=== PATIENT | female | born 1995 | race African-American/Black ===

== ENCOUNTER 2023-08-17 13:17 | Emergency (ER) | payer MEDICAID ==
[~2023-08-17] VITALS: Ht 162.6 cm; Wt 64.0 kg
[2023-08-17 13:26] VITALS: O2SAT 98
[2023-08-17] MEDS: DIPHENHYDRAMINE 50MG/ML VIAL IM STA (13:41)
[2023-08-17] MEDS: HALOPERIDOL LACTATE 5MG/ML VIAL IM ONE (13:41)
[2023-08-17] MEDS: LORAZEPAM 2MG/ML INJ IM ONE (13:41)
[2023-08-17 15:20] LABS: BASOPHILS % 0.5 % (0.0-2.0); EOSINOPHILS % 0.5 % (0.0-5.0); HEMATOCRIT. 32.9 % (36.0-48.0); HEMOGLOBIN. 10.5 g/dL (12.0-16.0); LYMPHOCYTES % 16.9 % (20.0-50.0); MEAN CORPUSCULAR HEMOGLOBIN 25.7 pg (28.0-32.0); MEAN CORPUSCULAR VOLUME 80.2 fL (81.0-99.0); MEAN PLATELET VOLUME 7.7 fl (7.4-10.4); MONOCYTES % 6.5 % (2.0-8.0); NEUTROPHILS % 75.6 % (40.0-76.0); PLATELET 373 x1000/uL (130-400); RED CELL DISTRIBUTION WIDTH 19.4 % (11.6-14.6); WHITE BLOOD COUNT 6.9 x1000/uL (4.5-11.0)
[2023-08-17 15:22] LABS: ACETAMINOPHEN < 2 ug/mL (10-30)
[2023-08-17 15:27] LABS: ETHANOL BLOOD < 10 mg/dL (<10); TROPONIN I HIGH SENSITIVITY < 4 ng/L (3.0-34)
[2023-08-17 15:32] LABS: HCG SCREEN NEGATIVE
[2023-08-17 18:55] LABS: CHLORIDE 109 mEq/L (98-107); POTASSIUM 4.1 mEq/L (3.5-5.1); SODIUM 140 mEq/L (136-145)
[2023-08-17 18:56] LABS: CALCIUM 9.1 mg/dL (8.7-10.4); CARBON DIOXIDE 25 mEq/L (21-32)
[2023-08-17 19:01] LABS: CREATININE 0.9 mg/dL (0.6-1.0); GLUCOSE 91 mg/dL (70-105); UREA NITROGEN BLOOD 9 mg/dL (9-23)
[2023-08-17 19:03] LABS: ALANINE AMINOTRANSFERASE 34 IU/L (10-49); ALBUMIN 4.3 g/dL (3.2-4.8); ASPARTATE AMINOTRANSFERASE 63 IU/L (<34); BILIRUBIN DIRECT 0.1 mg/dL (<=3.0); BILIRUBIN TOTAL 0.4 mg/dL (0.1-1.0); PROTEIN TOTAL 6.9 g/dL (6.0-8.3)
[2023-08-18 04:36] LABS: CLARITY URINE CLEAR (CLEAR); COLOR URINE YELLOW (YELLOW); GLUCOSE URINE NEGATIVE (NEGATIVE); KETONES URINE NEGATIVE (NEGATIVE); LEUKOCYTE ESTERASE URINE TRACE (NEGATIVE); NITRITE URINE NEGATIVE (NEGATIVE); OCCULT BLOOD URINE 3+ (NEGATIVE); PH URINE 6.5 (4.5-8.0); PROTEIN URINE TRACE (NEGATIVE); SPECIFIC GRAVITY URINE 1.019 (1.005-1.030); UROBILINOGEN URINE 0.2 E.U./dL (0.2-1.0)
[2023-08-18 04:44] LABS: *AMPHETAMINES SCREEN URINE PRESUMPTIVE POSITIVE (NEGATIVE); *BARBITURATES SCREEN URINE NEGATIVE (NEGATIVE); *BENZODIAZEPINES SCREEN URINE NEGATIVE (NEGATIVE); *COCAINE SCREEN URINE NEGATIVE (NEGATIVE); METHADONE URINE SCREEN NEGATIVE (NEGATIVE)
[2023-08-18 04:45] LABS: CANNABINOID URINE SCREEN PRESUMPTIVE POSITIVE (NEGATIVE); ECSTASY MDMA SCREEN URINE CONF.TEST INDICATED (NEGATIVE); OPIATES URINE SCREEN NEGATIVE (NEGATIVE); PHENCYCLIDINE URINE SCREEN NEGATIVE (NEGATIVE)
[2023-08-18 04:51] LABS: BACTERIA URINE TRACE; SQUAMOUS EPITHELIAL CELL URINE 1+ /lpf (RARE/1+); WBC URINE 0-2 /hpf (0-2)
[2023-08-18 05:05] VITALS: BP 118/68; PULSE 98; RESP 18; TEMP 98.2
== END 2023-08-18 07:42 | disposition left against medical advice (07) ==
LOC: ER 13:56 → EDBD 13:56 → ER 08-18 07:42
DX: R41.82 Altered mental status, unspecified (principal); Z98.890 Other specified postprocedural states
CPT/HCPCS: 80076; 80048; 80307; 80329; 80320; 84703; 85025; 84484; 36415; 70450; 72125; 96372; 99285; 80305; 81003; 81025; J1200; J1630; J2060; G0480